=== PATIENT | male | born 1995 | race Hispanic/Latino ===

== ENCOUNTER 2021-01-30 23:03 | Inpatient (IN) ==
[2021-01-30] MEDS ORDERED: 0.9 % SODIUM CHLORIDE 1,000 ML IV ONE (23:25)
[2021-01-30] MEDS ORDERED: ONDANSETRON 4 MG/2 ML VIAL IV ONE (23:26)
[2021-01-30] MEDS ORDERED: INSULIN REGULAR, HUMAN 1 UNIT/0.01 ML UNIT IV ONE (23:45)
[2021-01-31] MEDS ORDERED: 0.9 % SODIUM CHLORIDE 1,000 ML IV ONE ×2 (00:09→01:50)
--- NOTE | 2021-01-31 00:16 | Emergency Department Note ---
Nausea/Vomiting/Diarrhea HPI General Chief complaint: Nausea/Vomiting/Diarrhea Stated complaint: nausea and vomiting Time Seen by Provider: 01/30/21 23:06 Source: patient and family () Mode of arrival: ambulatory Limitations: no limitations History of Present Illness HPI Narrative: Narrative: 25-year-old male presents to the emerge department accompanied by his because of daily vomiting of over 2 weeks duration along with dizziness and fatigue. Symptoms began approximately 1 month ago when he had vertigo. Over time he had increasing dizziness felt fatigued and was unable to hold food or beverages down. 2 weeks ago he felt as though he had GERD but is not still unable to keep liquids or solids down. Increasingly felt weak dizzy poor intake. Rated his discomfort as a 6 on a 0-to-10 scale. Stated it was constant. Nothing seems to make it worse or better. He did drink large amounts of fluids and peed out large amounts of fluids but remained quite thirsty. He has had a 30 pound weight loss he states in the last 30 days. (I reviewed his medical record he was 215 pounds in October 2019 and he is 185 pounds today.) This is not associated with trauma. No one else around him has been recently ill. Family history; multiple family members have diabetes including grandmother and possibly mother. complaint: nausea Onset (ago): week(s) Severity: severe Improves with: none Worsens with: none Associated symptoms: Reports nausea/vomiting and weakness; Denies chest pain Related Data Previous Rx's Medication Instructions Recorded ondansetron 4 mg SL Q4-6HP PRN #10 tab 11/11/19 Allergies Allergy/AdvReac Type Severity Reaction Status Date / Time No Known Drug Allergies Allergy Verified 01/30/21 23:09 Review of Systems ROS ROS Narrative: Narrative: Constitutional: Denies fever Eyes: Denies eye discharge ENT ED: Reports throat pain; Denies rhinorrhea Cardiovascular: Denies chest pain Respiratory: Reports shortness of breath Gastrointestinal: Reports nausea and vomiting Genitourinary: Denies dysuria Musculoskeletal: Reports back pain Integumentary: Denies rash Neurological: Denies headache Psychiatric: Reports anxiety Hematological/Lymphatic: Denies easy bleeding PFSH Narrative Patient History Narrative: Narrative: Medical/Surgical/Family History All Active Problems (Updated 01/31/21 @ 03:17 by Travis Moseley MD) Gastroenteritis (Acute) DKA (diabetic ketoacidosis) (Acute) Diabetes mellitus, new onset (Acute) Dehydration, severe (Acute) Upper respiratory infection (Acute) Frontal sinusitis (Acute) Social History Smoking Status: Never smoker Alcohol Intake Frequency: does not drink Substance Use: does not use Exam Narrative Narrative: Narrative: is a well-developed well-nourished young man who is conversant about his condition in moderate acute distress. General Limitations: no limitations General appearance: Present alert and in distress Head Head: Present atraumatic and normocephalic Eye Eye: Present normal appearance and EOMI ENT ENT: Present mucous membranes dry Neck Neck: Present normal inspection and full ROM Chest Chest: Present normal inspection and symmetric chest wall rise Respiratory Respiratory: Present normal lung sounds bilaterally; Absent respiratory distress Cardiovascular Cardiovascular: Present normal rhythm and tachycardia Adbominal Abdominal: Present soft; Absent distention and tenderness Extremities Extremities: Present normal inspection and full ROM Neurological Neurological: Present alert and oriented X3 Psychiatric Psychiatric: Present normal affect and normal mood Skin Skin: Present warm (WNL) and dry Course Reevaluation(s) Reevaluation #1: Patient states he is feeling better. Still having burning in his esophagus/reflux. Advised him that he he would likely be admitted to the hospital as he had diabetic ketoacidosis. I base this on a bicarb of 7. I have placed a consult to the hospitalist to discuss the patient further. Time: 01:45 Consultations Consultation #1: Discussed the case with Dr. Lyn, the hospitalist on duty. Concurred that the patient had diabetic ketoacidosis and required inpatient therapy. He will admit the patient and write holding orders including an IV insulin drip. Additional orders were placed as requested. Time: 01:50 Vital Signs Vital signs: Vital Signs Temperature 97.7 F 01/30/21 23:04 Pulse Rate 128 H 01/30/21 23:04 Respiratory Rate 22 01/30/21 23:04 Blood Pressure 143/93 01/30/21 23:04 Pulse Oximetry (%) 96 01/30/21 23:04 Temperature 97.7 F 01/30/21 23:04 Pulse Rate 107 H 01/31/21 02:16 Respiratory Rate 22 01/30/21 23:04 Blood Pressure 140/86 01/31/21 02:16 Pulse Oximetry (%) 98 01/31/21 02:16 MDM MDM Narrative Medical decision making narrative: Narrative: 25-year-old male presents to the emerge department because of 2 weeks history of nausea vomiting and dizziness with fatigue and 30 pound weight loss over the at least past 4 weeks. Differential diagnosis includes gastrointestinal infection, Covid, diabetes, viral infection, other IV was established the patient was bolused a liter of normal saline bloods were obtained for testing and a fingerstick blood sugar revealed a blood glucose of 377. Second liter of normal saline was ordered for the patient and 5 units of regular Humulin insulin IV was ordered. Patient was given 1 dose of Zofran 4 mg IV. At 0140 chemistries came back showing a bicarb of 7 indicating the patient is in diabetic ketoacidosis. Glucose was elevated at 372. Blood was concentrated with a hemoglobin of 18.2. Here in the emerge department patient received 2 L normal saline and received 5 units of IV insulin. Patient will now be given an additional 5 units of insulin an additional liter of normal saline. Patient received 40 mg of Pepcid IV for his reflux pain. States he is overall feeling a bit better. I discussed the case with the hospitalist who agreed that the patient required admission and will be placed on an insulin drip. Lab Data Lab results reviewed: Yes I reviewed the patient's lab results. Result diagrams: 01/30/21 23:34 01/30/21 23:34 Labs: Lab Results 01/30/21 01/30/21 01/31/21 Range/Units 23:34 23:34 02:30 WBC 9.9 (4.5-11.0) K/mcL RBC 6.29 H (4.50-5.90) M/mcL Hgb 18.2 H (13.5-16.5) g/dL Hct 50.5 (41.0-55.0) % MCV 80.3 (80.0-100.0) fL MCH 28.9 (26.0-34.0) pg MCHC 36.0 (31.0-36.0) g/dL RDW 13.6 (11.5-14.5) % Plt Count 234 (140-440) K/mcL MPV 12.9 H (7.4-10.4) fL Neut % (Auto) 79.3 H (38.0-78.0) % Lymph % (Auto) 10.4 L (15.0-49.0) % [place] % (Auto) 9.5 (1.0-12.0) % Eos % (Auto) 0.1 (0.0-7.0) % Baso % (Auto) 0.7 (0.0-2.0) % Lymph # (Auto) 1.03 L (1.50-4.80) K/mcL [place] # (Auto) 0.94 H (0.10-0.90) K/mcL Eos # (Auto) 0.01 (0.00-0.70) K/mcL Baso # (Auto) 0.07 (0.00-0.20) K/mcL Absolute Neutrophils 7.84 (1.80-8.00) K/mcL ABG Methemoglobin 0.3 L (0.4-1.5) % VBG pH 7.16 L* (7.32-7.42) U VBG pCO2 26.8 L (41.0-51.0) mmHg VBG pO2 42.7 H (25.0-40.0) mmHg VBG HCO3 9.3 L* (24.0-28.0) mmol/L VBG Total CO2 10.2 L* (25.0-29.0) mmol/L VBG O2 Saturation 72.4 H (40.0-70.0) % VBG Base Excess -18 L (-2-3) Carboxyhemoglobin 4.1 H (0.0-1.5) % THgb Total Hemoglobin 15.3 (13.5-16.5) gm/Dl Sodium 133 (133-145) mmol/L Potassium 3.6 (3.3-5.1) mmol/L Chloride 94 L (96-108) mmol/L Carbon Dioxide 7 L* (22-30) mmol/L Anion Gap 32.0 H (8.0-16.0) BUN 7 (6-20) mg/dL Creatinine 1.2 (0.7-1.2) mg/dL GFR Calculation 84 Glucose 372 H (70-105) mg/dL Hemoglobin A1c (4.0-6.0) % Hgb Estim Average Glucose mg/dL Calcium 10.1 (8.6-10.4) mg/dL Total Bilirubin 0.6 (0.1-1.0) mg/dL AST 18 (<40) U/L ALT 15 (<40) U/L Alkaline Phosphatase 164 H (39-117) U/L Total Protein 8.9 H (5.9-8.4) gm/dL Albumin 4.9 (3.2-5.2) gm/dL Globulin 4.0 H (2.2-3.7) gm/dL Albumin/Globulin Ratio 1.2 (1.0-2.3) 01/31/21 Range/Units 02:30 WBC (4.5-11.0) K/mcL RBC (4.50-5.90) M/mcL Hgb (13.5-16.5) g/dL Hct (41.0-55.0) % MCV (80.0-100.0) fL MCH (26.0-34.0) pg MCHC (31.0-36.0) g/dL RDW (11.5-14.5) % Plt Count (140-440) K/mcL MPV (7.4-10.4) fL Neut % (Auto) (38.0-78.0) % Lymph % (Auto) (15.0-49.0) % [place] % (Auto) (1.0-12.0) % Eos % (Auto) (0.0-7.0) % Baso % (Auto) (0.0-2.0) % Lymph # (Auto) (1.50-4.80) K/mcL [place] # (Auto) (0.10-0.90) K/mcL Eos # (Auto) (0.00-0.70) K/mcL Baso # (Auto) (0.00-0.20) K/mcL Absolute Neutrophils (1.80-8.00) K/mcL ABG Methemoglobin (0.4-1.5) % VBG pH (7.32-7.42) U VBG pCO2 (41.0-51.0) mmHg VBG pO2 (25.0-40.0) mmHg VBG HCO3 (24.0-28.0) mmol/L VBG Total CO2 (25.0-29.0) mmol/L VBG O2 Saturation (40.0-70.0) % VBG Base Excess (-2-3) Carboxyhemoglobin (0.0-1.5) % THgb Total Hemoglobin (13.5-16.5) gm/Dl Sodium (133-145) mmol/L Potassium (3.3-5.1) mmol/L Chloride (96-108) mmol/L Carbon Dioxide (22-30) mmol/L Anion Gap (8.0-16.0) BUN (6-20) mg/dL Creatinine (0.7-1.2) mg/dL GFR Calculation Glucose (70-105) mg/dL Hemoglobin A1c 10.7 H (4.0-6.0) % Hgb Estim Average Glucose 260 mg/dL Calcium (8.6-10.4) mg/dL Total Bilirubin (0.1-1.0) mg/dL AST (<40) U/L ALT (<40) U/L Alkaline Phosphatase (39-117) U/L Total Protein (5.9-8.4) gm/dL Albumin (3.2-5.2) gm/dL Globulin (2.2-3.7) gm/dL Albumin/Globulin Ratio (1.0-2.3) ED POC Tests ED POC Tests: JOE - SARS Antigen Negative CC TIME Critical Care Time Critical Care Time: Yes (25-year-old male presents profoundly acidotic and dehydrated ) Total Critical Care Time: 35 Attestation: Critical care time of 35 minutes was exclusive of all procedures. Patient's profoundly acidotic and dehydrated from undiagnosed and untreated treated diabetes mellitus. 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
[2021-01-31] MEDS ORDERED: FAMOTIDINE/PF 20 MG/2 ML VIAL IV ONE (00:21)
[2021-01-31 01:14] LABS: Basophils # (Auto) 0.07 K/mcL (0.00-0.20); Basophils % (Auto) 0.7 % (0.0-2.0); Eosinophils # (Auto) 0.01 K/mcL (0.00-0.70); Eosinophils % (Auto) 0.1 % (0.0-7.0); Hematocrit 50.5 % (41.0-55.0); Hemoglobin 18.2 g/dL (13.5-16.5); Lymphocytes # (Auto) 1.03 K/mcL (1.50-4.80); Lymphocytes % (Auto) 10.4 % (15.0-49.0); Mean Cell Volume 80.3 fL (80.0-100.0); Mean Platelet Volume 12.9 fL (7.4-10.4); Monocytes # (Auto) 0.94 K/mcL (0.10-0.90); Monocytes % (Auto) 9.5 % (1.0-12.0); Neutrophils % (Auto) 79.3 % (38.0-78.0); Platelet Count 234 K/mcL (140-440); RBC 6.29 M/mcL (4.50-5.90); Red Cell Distribution Width 13.6 % (11.5-14.5); WBC 9.9 K/mcL (4.5-11.0)
[2021-01-31 01:37] LABS: ALT/SGPT 15 U/L (<40); AST/SGOT 18 U/L (<40); Albumin 4.9 gm/dL (3.2-5.2); Albumin/Globulin Ratio 1.2 (1.0-2.3); Alkaline Phosphatase 164 U/L (39-117); Bilirubin,Total 0.6 mg/dL (0.1-1.0); Blood Urea Nitrogen 7 mg/dL (6-20); Calcium 10.1 mg/dL (8.6-10.4); Carbon Dioxide 7 mmol/L (22-30); Chloride 94 mmol/L (96-108); Glomerular Filtration Rate 84; Glucose 372 mg/dL (70-105)
[2021-01-31] MEDS ORDERED: INSULIN REGULAR, HUMAN 1 UNIT/0.01 ML UNIT IV ONE (01:43)
[2021-01-31] MEDS ORDERED: MAG HYDROX/AL HYDROX/SIMETH 30 ML ORAL.SUSP PO ONE (01:54)
[2021-01-31] MEDS ORDERED: INSULIN REGULAR, HUMAN 1 UNIT/0.01 ML UNIT ONE (02:11)
[2021-01-31] MEDS ORDERED: SENNOSIDES 1 TABLET PO PRN (02:47)
[2021-01-31] MEDS ORDERED: INSULIN REGULAR, HUMAN 50 UNIT in 0.9 % SODIUM CHLORIDE 99.5 ML IV SCH (02:47)
[2021-01-31] MEDS ORDERED: LACTULOSE 20 GM/30 ML ORAL.SOL PO PRN (02:47)
[2021-01-31] MEDS ORDERED: POTASSIUM CHLORIDE 20 MEQ in DEXTROSE 5% IN WATER 250 ML IV ONE (02:47)
[2021-01-31] MEDS ORDERED: ACETAMINOPHEN 325 MG TABLET PO PRN (02:47)
[2021-01-31] MEDS ORDERED: ONDANSETRON 4 MG ODT TABLET SL PRN (02:47)
[2021-01-31] MEDS ORDERED: DEXTROSE 50% 50 ML SYRINGE IV ONE (02:47)
[2021-01-31] MEDS ORDERED: MAGNESIUM SULFATE 2 GM/50 ML BAG IV ONE (02:47)
[2021-01-31] MEDS ORDERED: ONDANSETRON 4 MG/2 ML VIAL IV PRN (02:47)
[2021-01-31 02:53] LABS: ABG Methemoglobin 0.3 % (0.4-1.5); Total Hemoglobin 15.3 gm/Dl (13.5-16.5); VBG Base Excess -18 (-2-3); VBG HCO3 9.3 mmol/L (24.0-28.0); VBG Oxygen Saturation 72.4 % (40.0-70.0); VBG PCO2 26.8 mmHg (41.0-51.0); VBG PH 7.16 U (7.32-7.42); VBG PO2 42.7 mmHg (25.0-40.0); VBG Total CO2 10.2 mmol/L (25.0-29.0)
[2021-01-31] MEDS: DEXTROSE 5%-1/2NS 1,000 ML IV SCH ×3 (03:03→15:39)
[2021-01-31] MEDS: 0.9 % SODIUM CHLORIDE 1,000 ML IV SCH ×2 (03:06→11:49)
[2021-01-31 03:08] LABS: Hemoglobin A1C 10.7 % Hgb (4.0-6.0)
[2021-01-31 03:14] LABS: Phosphorous 1.7 mg/dL (2.5-4.5)
[2021-01-31] MEDS: POTASSIUM PHOSPHATE 20 MEQ in DEXTROSE 5% IN WATER 250 ML IV ONE ×2 (03:17→03:32)
[2021-01-31] MEDS ORDERED: POTASSIUM PHOSPHATE 66 MEQ/15 ML VIAL IV ONE ×2 (03:25→19:38)
[2021-01-31 03:26] LABS: Beta Hydroxybutyrate 8.02 mmol/L (<0.27)
[2021-01-31 05:41] LABS: ABG Methemoglobin 0.2 % (0.4-1.5); Total Hemoglobin 14.1 gm/Dl (13.5-16.5); VBG Base Excess -15 (-2-3); VBG HCO3 11.1 mmol/L (24.0-28.0); VBG Oxygen Saturation 92.4 % (40.0-70.0); VBG PCO2 26.3 mmHg (41.0-51.0); VBG PH 7.24 U (7.32-7.42); VBG Total CO2 11.9 mmol/L (25.0-29.0)
[2021-01-31] MEDS: 0.9 % SODIUM CHLORIDE 10 ML SYRINGE IV SCH ×3 (05:48→21:10)
[2021-01-31 06:32] LABS: ALT/SGPT 10 U/L (<40); AST/SGOT 11 U/L (<40); Albumin 3.9 gm/dL (3.2-5.2); Albumin/Globulin Ratio 1.4 (1.0-2.3); Alkaline Phosphatase 120 U/L (39-117); Bilirubin,Direct < 0.2 mg/dL (0-0.3); Bilirubin,Total 0.4 mg/dL (0.1-1.0); Blood Urea Nitrogen 5 mg/dL (6-20); Calcium 8.2 mg/dL (8.6-10.4); Carbon Dioxide 10 mmol/L (22-30); Chloride 107 mmol/L (96-108); Globulin 2.8 gm/dL (2.2-3.7); Glomerular Filtration Rate 125; Glucose 283 mg/dL (70-105); Lactate Dehydrogenase 128 U/L (135-225); Phosphorous 2.3 mg/dL (2.5-4.5); Triglycerides 101 mg/dL (<150); Uric Acid 6.3 mg/dL (2.5-8.0)
[2021-01-31 09:50] LABS: ABG Methemoglobin 0 % (0.4-1.5); Total Hemoglobin 14.4 gm/Dl (13.5-16.5); VBG Base Excess -11 (-2-3); VBG HCO3 14.2 mmol/L (24.0-28.0); VBG Oxygen Saturation 94.5 % (40.0-70.0); VBG PCO2 29.1 mmHg (41.0-51.0); VBG PH 7.31 U (7.32-7.42); VBG PO2 184.1 mmHg (25.0-40.0); VBG Total CO2 15.1 mmol/L (25.0-29.0)
[2021-01-31] MEDS ORDERED: POTASSIUM CHLORIDE 20 MEQ TABLET PO ONE (10:11)
[2021-01-31] MEDS: MAG HYDROX/AL HYDROX/SIMETH 30 ML ORAL.SUSP PO PRN (11:54)
--- NOTE | 2021-01-31 12:02 | Internal Med History&Physical ---
HPI History of Present Illness Patient information: Note initiated : 01/31/21 at 11:55 am Service Date, if different from initiated Date: [] Patient: Mike Pavon a 25 y/o M admitted on 01/31/21 for nausea and vomiting. Chief Complaint: Nausea, vomiting, lightheadedness, found to be in DKA History of present illness: Mr. Pavon is a 25 year old M with minimal past medical history, mild asthma, who presents to the emergency department with sev eral weeks of symptoms. He states that he developed January 01 he started feeling unsteady on his feet, having sweats. That had progressed. Followed shortly by nausea with emesis, now being emesis 3-4 times a day. Also complaining of bad reflux. Has been unable to keep down much in the way of food or fluids during that time. He has now developed a dry tongue dry throat. He feels thirsty. He felt generally weak, and finds it is difficult to ambulate because his equilibrium is off. He has mostly been resting on his couch during this timeframe. He is also had some dyspnea and some mild chest pressure. He presents to the ED because ongoing symptoms. He is found to have glucose in the 300 range, was tachycardic. Labs showed bicarbonate of 7, anion gap of 32 with positive ketones. Hemoglobin was also elevated at 18.2 consistent with volume depletion. Is being admitted for further treatment of new onset diabetes mellitus and diabetic ketoacidosis. Patient denies any fevers or chills or headache. He does have a bubble that appears in his visual field when he is trying to read over the last few weeks since his symptoms started. Mild dyspnea which is improved after fluids. No cough or sputum production. Some chest pressure which is now resolved. No abdominal pain except along the rib cage which she associates with having thrown up frequently. Reflux as above, nausea with emesis. No hematemesis. No diarrhea. Urine output is about usual for him (normally he drinks about a gallon of fluid a day and urinates frequently). No rashes, no joint pains, no focal weaknesses, generally feels weak. Review of Systems All systems: reviewed and no additional remarkable complaints except as stated PFSH PFSH All Active Problems (Updated 01/31/21 @ 11:59 by Dulce Carlos MD) Gastroenteritis (Acute) DKA (diabetic ketoacidosis) (Acute) Diabetes mellitus, new onset (Acute) Dehydration, severe (Acute) Upper respiratory infection (Acute) Frontal sinusitis (Acute) Medical History (Updated 01/31/21 @ 11:59 by Dulce Carlos MD) Mild asthma Surgical History (Updated 01/31/21 @ 11:59 by Dulce Carlos MD) No history of previous surgery Family History (Updated 01/31/21 @ 12:00 by Dulce Carlos MD) Mother Diabetes Grandmother Diabetes Social History (Updated 01/31/21 @ 12:00 by Dulce Carlos MD) smoking status: Never smoker alcohol intake frequency: does not drink substance use type: does not use MEDS/ALLERGIES Home Medications and Allergies Home Medications Medication Instructions Recorded Confirmed Type ondansetron 4 mg SL Q4-6HP PRN #10 tab 11/11/19 01/31/21 Rx Allergies Allergy/AdvReac Type Severity Reaction Status Date / Time No Known Drug Allergies Allergy Verified 01/30/21 23:09 EXAM Constitutional Vitals: Temp Pulse Resp BP Pulse Ox 98.1 F 108 H 14 134/105 99 01/31/21 08:04 01/31/21 08:37 01/31/21 08:37 01/31/21 08:37 01/31/21 08:37 GENERAL: Alert, oriented, in no acute distress. Cooperative, appears stated age. HEENT: Atraumatic. Pupils equal at 3 mm, conjunctiva clear, no scleral icterus. Hearing grossly intact. Oropharynx with tacky mucous membranes. NECK: Supple without meningismus. RESPIRATORY: Breath sounds clear bilaterally without wheezes or rhonchi. Respiratory effort is unlabored. Normal respiratory depth, no tachypnea. CARDIOVASCULAR: Regular rate and rhythm, no murmur gallop or rub. No peripheral edema. Carotid pulses 2+. GI: Abdomen soft, nontender, no guarding or rebound. Mild tenderness along the inferior costal margin bilaterally. Bowel sounds are present. MUSCULOSKELETAL: No joint erythema or swelling, normal range of motion in all extremities. SKIN: Intact, warm, dry. No lesions. Skin turgor normal. NEUROLOGIC: Cranial nerves II through XII grossly intact. Muscle mass normal. Strength 5/5 in the upper and lower extremities. Sensation intact to light touch bilaterally. PSYCHIATRIC: Alert, oriented x3, normal mood and affect, normal insight. DATA Data Completed and Pending Labs: Labs from last 24 hours 01/31/21 01/31/21 01/31/21 09:10 05:23 05:23 WBC RBC Hgb Hct MCV MCH MCHC RDW Plt Count MPV Neut % (Auto) Lymph % (Auto) [place] % (Auto) Eos % (Auto) Baso % (Auto) Lymph # (Auto) [place] # (Auto) Eos # (Auto) Baso # (Auto) Absolute Neutrophils ABG Methemoglobin 0 L 0.2 L VBG pH 7.31 L 7.24 L VBG pCO2 29.1 L 26.3 L VBG pO2 184.1 H 85.0 H VBG HCO3 14.2 L 11.1 L VBG Total CO2 15.1 L 11.9 L VBG O2 Saturation 94.5 H 92.4 H VBG Base Excess -11 L -15 L Carboxyhemoglobin 4.6 H 4.4 H Total Hemoglobin 14.4 14.1 Sodium 135 Potassium 3.3 Chloride 107 Carbon Dioxide 10 L* Anion Gap 18.0 H BUN 5 L Creatinine 0.8 GFR Calculation 125 Glucose 283 H Hemoglobin A1c Estim Average Glucose Uric Acid 6.3 Calcium 8.2 L Phosphorus 2.3 L Magnesium 1.9 Total Bilirubin 0.4 Direct Bilirubin < 0.2 GGT 16 AST 11 ALT 10 Alkaline Phosphatase 120 H Lactate Dehydrogenase 128 L Total Protein 6.7 Albumin 3.9 Globulin 2.8 Albumin/Globulin Ratio 1.4 Triglycerides 101 Beta-Hydroxybutyrate 01/31/21 01/31/21 01/31/21 02:30 02:30 02:30 WBC RBC Hgb Hct MCV MCH MCHC RDW Plt Count MPV Neut % (Auto) Lymph % (Auto) [place] % (Auto) Eos % (Auto) Baso % (Auto) Lymph # (Auto) [place] # (Auto) Eos # (Auto) Baso # (Auto) Absolute Neutrophils ABG Methemoglobin 0.3 L VBG pH 7.16 L* VBG pCO2 26.8 L VBG pO2 42.7 H VBG HCO3 9.3 L* VBG Total CO2 10.2 L* VBG O2 Saturation 72.4 H VBG Base Excess -18 L Carboxyhemoglobin 4.1 H Total Hemoglobin 15.3 Sodium Potassium Chloride Carbon Dioxide Anion Gap BUN Creatinine GFR Calculation Glucose Hemoglobin A1c 10.7 H Pending Estim Average Glucose 260 Uric Acid Calcium Phosphorus Magnesium Total Bilirubin Direct Bilirubin GGT AST ALT Alkaline Phosphatase Lactate Dehydrogenase Total Protein Albumin Globulin Albumin/Globulin Ratio Triglycerides Beta-Hydroxybutyrate 01/31/21 01/30/21 01/30/21 02:30 23:34 23:34 WBC 9.9 RBC 6.29 H Hgb 18.2 H Hct 50.5 MCV 80.3 MCH 28.9 MCHC 36.0 RDW 13.6 Plt Count 234 MPV 12.9 H Neut % (Auto) 79.3 H Lymph % (Auto) 10.4 L [place] % (Auto) 9.5 Eos % (Auto) 0.1 Baso % (Auto) 0.7 Lymph # (Auto) 1.03 L [place] # (Auto) 0.94 H Eos # (Auto) 0.01 Baso # (Auto) 0.07 Absolute Neutrophils 7.84 ABG Methemoglobin VBG pH VBG pCO2 VBG pO2 VBG HCO3 VBG Total CO2 VBG O2 Saturation VBG Base Excess Carboxyhemoglobin Total Hemoglobin Sodium 133 Potassium 3.6 Chloride 94 L Carbon Dioxide 7 L* Anion Gap 32.0 H BUN 7 Creatinine 1.2 GFR Calculation 84 Glucose 372 H Hemoglobin A1c Estim Average Glucose Uric Acid Calcium 10.1 Phosphorus 1.7 L Magnesium 1.9 Total Bilirubin 0.6 Direct Bilirubin GGT AST 18 ALT 15 Alkaline Phosphatase 164 H Lactate Dehydrogenase Total Protein 8.9 H Albumin 4.9 Globulin 4.0 H Albumin/Globulin Ratio 1.2 Triglycerides Beta-Hydroxybutyrate 8.02 H A/P Narrative A/P Narrative: 25-year-old male presents with several weeks of nausea, vomiting, lightheadedness, disequilibrium, found to be hyperglycemic and in diabetic ketoacidosis. Diabetic ketoacidosis and diabetes mellitus -New onset diabetes mellitus -Suspect etiology is due to unrecognized diabetes, no evidence of infection -Likely type 1 diabetes given the patient's age and presentation -We will rule out type 2 diabetes with C-peptide assay -We will require diabetes education and insulin therapy Plan: Inpatient admission DKA protocol, intravenous insulin infusion until anion gap closed Transition to subcu insulin once anion gap closed Diabetes education Send C-peptide Follow electrolytes and replete as needed DVT prophylaxis: Early ambulation, very low risk Time Spent With Patient Time: Total time spent is greater than 50% in coordination of care (as documented) at patient's floor/unit and/or counseling patient: QUALITY VTE Deep Vein Thrombosis/Pulmonary Embolism Present on Admission: No
[2021-01-31] MEDS: INSULIN REGULAR, HUMAN 50 UNIT in 0.9 % SODIUM CHLORIDE 99.5 ML IV SCH ×2 (12:11→23:20)
[2021-01-31 13:25] LABS: ABG Methemoglobin 0.1 % (0.4-1.5); Total Hemoglobin 13.8 gm/Dl (13.5-16.5); VBG Base Excess -8 (-2-3); VBG HCO3 16.2 mmol/L (24.0-28.0); VBG PCO2 29.8 mmHg (41.0-51.0); VBG PH 7.35 U (7.32-7.42); VBG PO2 55.4 mmHg (25.0-40.0); VBG Total CO2 17.1 mmol/L (25.0-29.0)
[2021-01-31 13:49] LABS: Carbon Dioxide 16 mmol/L (22-30); Chloride 107 mmol/L (96-108)
[2021-01-31] MEDS ORDERED: POTASSIUM CHLORIDE 20 MEQ TABLET PO PRN (16:29)
[2021-01-31] MEDS: 0.9 % SODIUM CHLORIDE 250 ML IV SCH (17:37)
[2021-01-31 17:51] LABS: ABG Methemoglobin 0.1 % (0.4-1.5); Total Hemoglobin 13.6 gm/Dl (13.5-16.5); VBG Base Excess -8 (-2-3); VBG HCO3 16.9 mmol/L (24.0-28.0); VBG Oxygen Saturation 91.7 % (40.0-70.0); VBG PCO2 31.1 mmHg (41.0-51.0); VBG PH 7.35 U (7.32-7.42); VBG Total CO2 17.8 mmol/L (25.0-29.0)
[2021-01-31 18:25] LABS: Albumin 3.6 gm/dL (3.2-5.2); Calcium 8.3 mg/dL (8.6-10.4)
[2021-01-31] MEDS ORDERED: POTASSIUM PHOSPHATE 40 MEQ in DEXTROSE 5% IN WATER 500 ML IV ONE (18:49)
[2021-01-31] MEDS ORDERED: DEXTROSE 31 GM ORAL.SUSP PO PRN (18:55)
[2021-01-31] MEDS ORDERED: DEXTROSE 50% 50 ML VIAL IV PRN (18:55)
[2021-01-31] MEDS: NEUTRA PHOS 1 PACKET PO SCH (19:52)
[2021-01-31] MEDS: INSULIN GLARGINE, HUMAN 1 UNIT/0.01 ML SQ SCH ×2 (19:53→21:09)
[2021-01-31] MEDS: POTASSIUM CHLORIDE 20 MEQ TABLET PO SCH (19:54)
[2021-01-31] MEDS: INSULIN LISPRO 1 UNIT/0.01 ML UNIT SQ SCH (21:09)
[2021-02-01] MEDS: 0.9 % SODIUM CHLORIDE 250 ML IV SCH (05:39)
[2021-02-01] MEDS: 0.9 % SODIUM CHLORIDE 10 ML SYRINGE IV SCH ×3 (05:39→21:55)
[2021-02-01] MEDS ORDERED: INSULIN LISPRO 1 UNIT/0.01 ML UNIT SQ SCH (07:00)
[2021-02-01] MEDS: INSULIN LISPRO 1 UNIT/0.01 ML UNIT SQ SCH ×7 (08:03→21:54)
[2021-02-01] MEDS: POTASSIUM CHLORIDE 20 MEQ TABLET PO SCH ×2 (08:04→17:43)
[2021-02-01] MEDS: NEUTRA PHOS 1 PACKET PO SCH ×2 (08:04→21:54)
[2021-02-01] MEDS: MAG HYDROX/AL HYDROX/SIMETH 30 ML ORAL.SUSP PO PRN (08:32)
[2021-02-01 08:33] LABS: ALT/SGPT 9 U/L (<40); AST/SGOT 13 U/L (<40); Albumin 3.6 gm/dL (3.2-5.2); Albumin/Globulin Ratio 1.4 (1.0-2.3); Alkaline Phosphatase 109 U/L (39-117); Bilirubin,Direct < 0.2 mg/dL (0-0.3); Bilirubin,Total 0.6 mg/dL (0.1-1.0); Blood Urea Nitrogen 5 mg/dL (6-20); Calcium 8.5 mg/dL (8.6-10.4); Carbon Dioxide 20 mmol/L (22-30); Chloride 107 mmol/L (96-108); Globulin 2.6 gm/dL (2.2-3.7); Glomerular Filtration Rate 132; Glucose 248 mg/dL (70-105); Lactate Dehydrogenase 163 U/L (135-225); Phosphorous 2.7 mg/dL (2.5-4.5); Triglycerides 72 mg/dL (<150); Uric Acid 3.5 mg/dL (2.5-8.0)
--- NOTE | 2021-02-01 11:41 | Internal Med Progress Note ---
SUBJECTIVE Subjective Patient information: Note initiated : 02/01/21 at 11:40 am Service Date, if different from initiated Date: [] Patient: Mike Pavon a 25 y/o M admitted on 01/31/21 for nausea and vomiting. Chief Complaint: f/u DKA Interval history: Mr. Pavon is a 25 year old M with minimal past medical history, mild asthma, who presents to the emergency department with several weeks of symptoms. He states that he developed January 01 he started feeling unsteady on his feet, having sweats. That had progressed. Followed shortly by nausea with emesis, now being emesis 3-4 times a day. Also complaining of bad reflux. Has been unable to keep down much in the way of food or fluids during that time. He has now developed a dry tongue dry throat. He feels thirsty. He felt generally weak, and finds it is difficult to ambulate because his equilibrium is off. He has mostly been resting on his couch during this timeframe. He is also had some dyspnea and some mild chest pressure. He presents to the ED because ongoing symptoms. He is found to have glucose in the 300 range, was tachycardic. Labs showed bicarbonate of 7, anion gap of 32 with positive ketones. Hemoglobin was also elevated at 18.2 consistent with volume depletion. Is being admitted for further treatment of new onset diabetes mellitus and diabetic ketoacidosis. 8/3anion gap closed late yesterday afternoon, transitioned over to Lantus at bedtime, fixed dose mealtime insulin. Feels well this morning. C-peptide still pending. Will follow up as outpatient diabetes education. Learning how to self administer insulin. Will attempt to fix mealtime dose (5 units) plus sliding scale with evening long-acting to start a regimen. Constitutional Vitals: Vital Signs Temp Pulse Resp BP Pulse Ox 97.5 F 98 H 18 142/92 100 02/01/21 08:18 01/31/21 23:59 02/01/21 08:18 02/01/21 08:18 02/01/21 08:18 Period Temp Pulse Resp BP Sys/Chambers Pulse Ox Last 24 Hr 97.5 F-98.4 F 96-105 18-19 123-153/68-122 96-100 Intake and Output 01/31/21 02/01/21 02/01/21 21:59 05:59 13:59 Intake Total 2533 709.0909 180 Output Total 0 Balance 2533 709.0909 180 Weight 189 lb 189 lb Patient Weight 02/02/21 05:59 Weight 189 lb GENERAL: In no acute distress RESPIRATORY: Clear bilaterally, good aeration CARDIOVASCULAR: Regular rate and rhythm ABDOMEN: Soft, nontender EXTREMITIES: No edema NEURO: Alert, oriented x3, nonfocal and ambulatory Intake & Output: Intake & Output 01/31/21 02/01/21 02/01/21 21:59 05:59 13:59 Intake Total 2533 709.0909 180 Output Total 0 Balance 2533 709.0909 180 Weight 189 lb 189 lb Intake: IV 7487 559.1554 0 Sodium Chloride 0.9% 250 ml @ 79 20 mls/hr IV .[id number] [facility] Rx#: [id number] Dextrose 5%-1/2Ns IV Solution 1 1590 ,000 ml @ 100 mls/hr IV .Q10H [facility] Rx#:[id number] HumuLIN R 50 UNIT In Sodium 84 0 Chloride 0.9% 99.5 ml @ 8 UNIT/ HR 16 mls/hr IV Q12H [facility] Rx#: [id number] Potassium Phosphate 40 Meq In 509.0909 Dextrose 5% in Water 500 ml @ 127.273 mls/hr IV ONCE ONE Rx#: [id number] Oral 780 200 180 Output: Void Amount 0 Other: Meal Dinner Breakfast Percent of Meal Consumed 75% 100% # Voids 1 2 1 OBJ DATA Labs CBC & Chem 7: 01/30/21 23:34 02/01/21 07:20 Labs: Abnormal Lab Results 02/01/21 01/31/21 01/31/21 07:20 17:18 17:18 RBC Hgb MPV Neut % (Auto) Lymph % (Auto) Lymph # (Auto) Traill # (Auto) ABG Methemoglobin 0.1 L VBG pH VBG pCO2 31.1 L VBG pO2 77.0 H VBG HCO3 16.9 L VBG Total CO2 17.8 L VBG O2 Saturation 91.7 H VBG Base Excess -8 L Carboxyhemoglobin 4.7 H Potassium 3.1 L Chloride 109 H Carbon Dioxide 20 L 18 L Anion Gap BUN 5 L Glucose 248 H 155 H Hemoglobin A1c Calcium 8.5 L 8.3 L Phosphorus 1.0 L Alkaline Phosphatase Lactate Dehydrogenase Total Protein Globulin Beta-Hydroxybutyrate 01/31/21 01/31/21 01/31/21 13:07 13:07 09:10 RBC Hgb MPV Neut % (Auto) Lymph % (Auto) Lymph # (Auto) Traill # (Auto) ABG Methemoglobin 0.1 L 0 L VBG pH 7.31 L VBG pCO2 29.8 L 29.1 L VBG pO2 55.4 H 184.1 H VBG HCO3 16.2 L 14.2 L VBG Total CO2 17.1 L 15.1 L VBG O2 Saturation 87.0 H 94.5 H VBG Base Excess -8 L -11 L Carboxyhemoglobin 4.8 H 4.6 H Potassium 3.0 L Chloride Carbon Dioxide 16 L Anion Gap BUN Glucose Hemoglobin A1c Calcium Phosphorus Alkaline Phosphatase Lactate Dehydrogenase Total Protein Globulin Beta-Hydroxybutyrate 01/31/21 01/31/21 01/31/21 05:23 05:23 02:30 RBC Hgb MPV Neut % (Auto) Lymph % (Auto) Lymph # (Auto) Traill # (Auto) ABG Methemoglobin 0.2 L VBG pH 7.24 L VBG pCO2 26.3 L VBG pO2 85.0 H VBG HCO3 11.1 L VBG Total CO2 11.9 L VBG O2 Saturation 92.4 H VBG Base Excess -15 L Carboxyhemoglobin 4.4 H Potassium Chloride Carbon Dioxide 10 L* Anion Gap 18.0 H BUN 5 L Glucose 283 H Hemoglobin A1c 10.7 H Calcium 8.2 L Phosphorus 2.3 L Alkaline Phosphatase 120 H Lactate Dehydrogenase 128 L Total Protein Globulin Beta-Hydroxybutyrate 01/31/21 01/31/21 01/30/21 02:30 02:30 23:34 RBC Hgb MPV Neut % (Auto) Lymph % (Auto) Lymph # (Auto) Traill # (Auto) ABG Methemoglobin 0.3 L VBG pH 7.16 L* VBG pCO2 26.8 L VBG pO2 42.7 H VBG HCO3 9.3 L* VBG Total CO2 10.2 L* VBG O2 Saturation 72.4 H VBG Base Excess -18 L Carboxyhemoglobin 4.1 H Potassium Chloride 94 L Carbon Dioxide 7 L* Anion Gap 32.0 H BUN Glucose 372 H Hemoglobin A1c Calcium Phosphorus 1.7 L Alkaline Phosphatase 164 H Lactate Dehydrogenase Total Protein 8.9 H Globulin 4.0 H Beta-Hydroxybutyrate 8.02 H 01/30/21 23:34 RBC 6.29 H Hgb 18.2 H MPV 12.9 H Neut % (Auto) 79.3 H Lymph % (Auto) 10.4 L Lymph # (Auto) 1.03 L Traill # (Auto) 0.94 H ABG Methemoglobin VBG pH VBG pCO2 VBG pO2 VBG HCO3 VBG Total CO2 VBG O2 Saturation VBG Base Excess Carboxyhemoglobin Potassium Chloride Carbon Dioxide Anion Gap BUN Glucose Hemoglobin A1c Calcium Phosphorus Alkaline Phosphatase Lactate Dehydrogenase Total Protein Globulin Beta-Hydroxybutyrate Meds: Medications Acetaminophen (Acetaminophen 325 Mg Tablet) 650 mg PO Q6HP PRN; Protocol PRN Reason: Per Pain Protocol/Fever > 101 Last Admin: 01/31/21 20:01 Dose: 650 mg Documented by: Al Hydrox/Mg Hydrox/Simethicone (Mag Hydrox/Al Hydrox/Simeth 30 Ml Oral.Susp) 30 ml PO Q4-6HP PRN PRN Reason: Dyspepsia Last Admin: 02/01/21 08:32 Dose: 30 ml Documented by: Dextrose (Dextrose 50% 50 Ml Vial) 0 ml IV UD PRN PRN Reason: Hypoglycemia Diagnostic Test (Pha) (Accu-Chek 1 Each Strip) 1 each FS [facility] Last Admin: 02/01/21 11:08 Dose: 1 each Documented by: Glucose (Dextrose 31 Gm Oral.Susp) 15 gm PO PRN PRN PRN Reason: Hypoglycemia Insulin Glargine (Insulin Glargine, Human 1 Unit/0.01 Ml) 30 unit SQ [facility] Last Admin: 01/31/21 21:09 Dose: Not Given Documented by: Insulin Human Lispro (Insulin Lispro 1 Unit/0.01 Ml Unit) 0 unit SQ [facility]; Protocol Last Admin: 02/01/21 11:15 Dose: 4 unit Documented by: Insulin Human Lispro (Insulin Lispro 1 Unit/0.01 Ml Unit) 5 unit SQ [facility] Last Admin: 02/01/21 11:16 Dose: 5 unit Documented by: Lactulose (Lactulose 20 Gm/30 Ml Oral.Karina) 10 gm PO DAILYP PRN PRN Reason: Constipation Ondansetron HCl (Ondansetron 4 Mg/2 Ml Vial) 4 mg IV Q4HP PRN; Protocol PRN Reason: Nausea And Vomiting Last Admin: 01/31/21 20:02 Dose: 4 mg Documented by: Ondansetron HCl (Ondansetron 4 Mg Odt Tablet) 4 mg SL Q4HP PRN; Protocol PRN Reason: Nausea And Vomiting Potassium Chloride (Potassium Chloride 20 Meq Tablet) 40 meq PO PRN PRN PRN Reason: hypokalemia Last Admin: 01/31/21 16:50 Dose: 40 meq Documented by: Potassium Chloride (Potassium Chloride 20 Meq Tablet) 40 meq PO BIDCC [facility] Last Admin: 02/01/21 08:04 Dose: 40 meq Documented by: Potassium/Phosphorus/Sodium (Neutra Phos 1 Packet) 2 packet PO BID [facility] Stop: 02/01/21 21:01 Last Admin: 02/01/21 08:04 Dose: 2 packet Documented by: Senna (Sennosides 1 Tablet) 2 tab PO HSP PRN PRN Reason: Constipation Sodium Chloride (0.9 % Sodium Chloride 10 Ml Syringe) 10 ml IV Q8 [facility] Last Admin: 02/01/21 05:39 Dose: 10 ml Documented by: ABG Interpretation ABG results: 01/31/21 01/31/21 01/31/21 02:30 05:23 09:10 ABG Methemoglobin 0.3 L 0.2 L 0 L VBG pH 7.16 L* 7.24 L 7.31 L VBG pCO2 26.8 L 26.3 L 29.1 L VBG pO2 42.7 H 85.0 H 184.1 H VBG HCO3 9.3 L* 11.1 L 14.2 L VBG Total CO2 10.2 L* 11.9 L 15.1 L VBG O2 Saturation 72.4 H 92.4 H 94.5 H VBG Base Excess -18 L -15 L -11 L 01/31/21 01/31/21 13:07 17:18 ABG Methemoglobin 0.1 L 0.1 L VBG pH 7.35 7.35 VBG pCO2 29.8 L 31.1 L VBG pO2 55.4 H 77.0 H VBG HCO3 16.2 L 16.9 L VBG Total CO2 17.1 L 17.8 L VBG O2 Saturation 87.0 H 91.7 H VBG Base Excess -8 L -8 L A/P Narrative A/P Narrative: 25-year-old male presents with several weeks of nausea, vomiting, lightheadedness, disequilibrium, found to be hyperglycemic and in diabetic ketoacidosis. Diabetic ketoacidosis and diabetes mellitus -New onset diabetes mellitus -Suspect etiology is due to unrecognized diabetes, no evidence of infection -Likely type 1 diabetes given the patient's age and presentation -Will rule out type 2 diabetes with C-peptide assay -Will require diabetes education and insulin therapy -DKA resolved 02/01, monitoring for adequate control with initial subcu insulin regimen Plan: Continue with subcu regimen, reevaluate after lunch, may be able to discharge this afternoon Diabetes education Follow-up C-peptide Follow electrolytes and replete as needed Follow-up appointment scheduled on 02/03 at the [facility], case management attempting to procure insulin Time Spent With Patient Time: Total time spent is greater than 50% in coordination of care (as documented) at patient's floor/unit and/or counseling patient: QUALITY VTE Deep Vein Thrombosis/Pulmonary Embolism Present on Admission: No
--- NOTE | 2021-02-01 13:48 | Discharge Summary ---
Discharge Provider Provider Patient information: Note initiated : 02/01/21 at 1:47 pm Service Date, if different from initiated Date: [] Patient: Mike Pavon 25 y/o M admitted on 01/31/21 for nausea and vomiting. Chief Complaint: [] Date of admission: 01/31/21 02:43 Discharge date: 02/02/21 Primary care physician: PCP No Consults: 01/30/21 Consult to Physician [CONS] Stat Comment: Consulting Provider: Dulce Carlos Reason For Exam: Physician to Consult Discharge Meds Discharge Medications Home Medications ondansetron 4 mg SL Q4-6HP PRN #10 tab 11/11/19 [Rx Confirmed 01/31/21 Last Taken Unknown] blood sugar diagnostic #100 each 02/01/21 [Rx Last Taken Unknown] blood-glucose meter #1 each 02/01/21 [Rx Last Taken Unknown] insulin aspart U-100 See Protocol SUBCUT ACHS #15 ml MDD 40 02/01/21 [Rx Last T aken Unknown] insulin glargine [Lantus Solostar U-100 Insulin] 30 unit SUB-Q BID #15 ml 02/01/21 [Rx Last Taken Unknown] lancets #100 each 02/01/21 [Rx Last Taken Unknown] pen needle, diabetic #100 ea 02/01/21 [Rx Last Taken Unknown] COURSE Hospital Course Hospital course: Interval history: Mr. Pavon is a 25 year old M with minimal past medical history, mild asthma, who presents to the emergency department with several weeks of symptoms. He states that he developed January 01 he started feeling unsteady on his feet, having sweats. That had progressed. Followed shortly by nausea with emesis, now being emesis 3-4 times a day. Also complaining of bad reflux. Has been unable to keep down much in the way of food or fluids during that time. He has now developed a dry tongue dry throat. He feels thirsty. He felt generally weak, and finds it is difficult to ambulate because his equilibrium is off. He has mostly been resting on his couch during this timeframe. He is also had some dyspnea and some mild chest pressure. He presents to the ED because ongoing symptoms. He is found to have glucose in the 300 range, was tachycardic. Labs showed bicarbonate of 7, anion gap of 32 with positive ketones. Hemoglobin was also elevated at 18.2 consistent with volume depletion. Is being admitted for further treatment of new onset diabetes mellitus and diabetic ketoacidosis. ni gap closed late yesterday afternoon, transitioned over to Lantus at bedtime, fixed dose mealtime insulin. Feels well this morning. C-peptide still pending. Will follow up as outpatient diabetes education. Learning how to self administer insulin. Will attempt to fix mealtime dose (5 units) plus sliding scale with evening long-acting to start a regimen. 02/02 Patient doing well. Blood glucose much improved. A/P Narrative: 25-year-old male presents with several weeks of nausea, vomiting, lightheadedness, disequilibrium, found to be hyperglycemic and in diabetic ketoacidosis. Diabetic ketoacidosis and diabetes mellitus -New onset diabetes mellitus -Suspect etiology is due to unrecognized diabetes, no evidence of infection -Likely type 1 diabetes given the patient's age and presentation -Will rule out type 2 diabetes with C-peptide assay -Will require diabetes education and insulin therapy -DKA resolved 02/01, monitoring for adequate control with initial subcu insulin regimen Discharge diagnosis: DKA new diabetes Time Spent with Patient Time attestation: Total time spent providing and/or coordinating discharge services: Time spent: Greater than 30 minutes EXAM Constitutional Vitals: Temp Pulse Resp BP Pulse Ox 97.8 F 98 H 17 138/93 99 02/01/21 12:30 01/31/21 23:59 02/01/21 12:30 02/01/21 12:30 02/01/21 12:30 Discharge Data Data Completed and Pending Labs on day of discharge: Labs from last 24 hours 02/01/21 01/31/21 01/31/21 07:20 17:18 17:18 ABG Methemoglobin 0.1 L VBG pH 7.35 VBG pCO2 31.1 L VBG pO2 77.0 H VBG HCO3 16.9 L VBG Total CO2 17.8 L VBG O2 Saturation 91.7 H VBG Base Excess -8 L Carboxyhemoglobin 4.7 H Total Hemoglobin 13.6 Sodium 140 138 Potassium 3.4 3.1 L Chloride 107 109 H Carbon Dioxide 20 L 18 L Anion Gap 13.0 11.0 BUN 5 L 8 Creatinine 0.7 0.8 GFR Calculation 132 125 Glucose 248 H 155 H Uric Acid 3.5 Calcium 8.5 L 8.3 L Phosphorus 2.7 1.0 L Magnesium 2.0 2.2 Total Bilirubin 0.6 Direct Bilirubin < 0.2 GGT 15 AST 13 ALT 9 Alkaline Phosphatase 109 Lactate Dehydrogenase 163 Total Protein 6.2 Albumin 3.6 3.6 Globulin 2.6 Albumin/Globulin Ratio 1.4 Triglycerides 72 01/31/21 13:07 ABG Methemoglobin VBG pH VBG pCO2 VBG pO2 VBG HCO3 VBG Total CO2 VBG O2 Saturation VBG Base Excess Carboxyhemoglobin Total Hemoglobin Sodium 137 Potassium 3.0 L Chloride 107 Carbon Dioxide 16 L Anion Gap 14.0 BUN Creatinine GFR Calculation Glucose Uric Acid Calcium Phosphorus Magnesium 2.0 Total Bilirubin Direct Bilirubin GGT AST ALT Alkaline Phosphatase Lactate Dehydrogenase Total Protein Albumin Globulin Albumin/Globulin Ratio Triglycerides Discharge Plan Patient/Caregiver Discharge Instructions Activity: increase activity as tolerated Diet: Consistent Carbohydrate Instructions: Diabetic Ketoacidosis (GEN), Type 1 Diabetes in Adults: New Diagnosis (GEN), How to Give an Insulin Injection (GEN), Meal Planning with Diabetes Exchanges (GEN) Activity Restrictions/Additional Instructions: Maintain a log of your blood sugar tests with meals and before bedtime and bring to PCP. Prescriptions: New (DME) blood sugar diagnostic Strip See Rx Instructions .ROUTE .MEDSUPPLY Qty: 100 RF: 0 (DME) lancets Misc See Rx Instructions .ROUTE .MEDSUPPLY Qty: 100 RF: 0 (DME) blood-glucose meter Kit See Rx Instructions .ROUTE .MEDSUPPLY Qty: 1 RF: 0 insulin aspart U-100 100 unit/mL (3 mL) insulin pen See Protocol unit subcut ACHS MDD 40 Qty: 15 RF: 0 Lantus Solostar U-100 Insulin 100 unit/mL (3 mL) insulin pen 30 unit SUB-Q BID Qty: 15 RF: 0 (DME) pen needle, diabetic 30 gauge x 5/16" needle See Rx Instructions .ROUTE .MEDSUPPLY Qty: 100 RF: 0 Continued ondansetron 4 MG tablet 4 mg SL Q4-6HP PRN (Reason: Nausea) Qty: 10 RF: 0 Follow Up Plan Follow up with: Francis Posada ARNP [Physician] - 02/03/21 8:20 am Patient Disposition: Home, Self-Care Prognosis: Fair Rehab Potential: Fair Overall status at discharge: patient is progressing back to baseline Discharge Orders: Discharge Order (Routine); Ordered 02/02/21 Ordered By: Leonardo WEI VTE Deep Vein Thrombosis/Pulmonary Embolism Present on Admission: No
[2021-02-01] MEDS: INSULIN GLARGINE, HUMAN 1 UNIT/0.01 ML SQ SCH (21:54)
[2021-02-02] MEDS: 0.9 % SODIUM CHLORIDE 10 ML SYRINGE IV SCH (07:29)
[2021-02-02] MEDS: INSULIN LISPRO 1 UNIT/0.01 ML UNIT SQ SCH ×2 (07:29)
[2021-02-02] MEDS: POTASSIUM CHLORIDE 20 MEQ TABLET PO SCH (07:30)
== END 2021-02-02 10:40 | disposition home or self-care (01) | DRG 639 ==
LOC: ED 23:03 → ICU 01-31 02:43
PROVIDERS: ADMIT Internal Medicine; ATTEND Internal Medicine